=== PATIENT | female | born 1975 | race Caucasian/White ===

== ENCOUNTER 2017-10-27 19:48 | Emergency (ER) | payer BC ==
[~2017-10-27] VITALS: Ht 175.3 cm; Wt 117.9 kg
[2017-10-27 19:50] VITALS: BP_SYST 148
[2017-10-27] MEDS ORDERED: CLINDAMYCIN PHOSPHATE 300 MG/2 ML VIAL IM ONE (20:15)
[2017-10-27 20:34] VITALS: BP_SYST 134
== END 2017-10-27 20:34 | disposition home or self-care (01) ==
LOC: SED 19:48
DX: L98.9 Disorder of the skin and subcutaneous tissue, unspecified (principal); R03.0 Elevated blood-pressure reading, without diagnosis of hypertension; Z86.14 Personal history of Methicillin resistant Staphylococcus aureus infection; Z90.49 Acquired absence of other specified parts of digestive tract
CPT/HCPCS: 96372; 99283; J3490